=== PATIENT | male | born 1965 | race Two or more races ===

== ENCOUNTER 2019-05-24 18:11 | Emergency (ER) | payer OTHER ==
[~2019-05-24] VITALS: Ht 167.6 cm; Wt 99.8 kg
--- NOTE | 2019-05-24 19:00 | NUR ---
Dr. Buenrostro at bedside for MSE.
--- NOTE | 2019-05-24 19:06 | NUR ---
Patient discharged to home in stable conditon. Written and verbal after care instructions given. Patient verbalizes understanding of instructions. Pt ambulated out of ER with steady gait, no acute signs of distress, VSS, all belongings taken.
[2019-05-24 19:08] VITALS: BP 132/78
== END 2019-05-24 19:08 | disposition home or self-care (01) ==
LOC: ER 18:18
DX: J06.9 Acute upper respiratory infection, unspecified (principal); B95.8 Unspecified staphylococcus as the cause of diseases classified elsewhere
CPT/HCPCS: A4663

== ENCOUNTER 2020-10-20 17:25 | Emergency (ER) | payer OTHER ==
[~2020-10-20] VITALS: Ht 165.1 cm; Wt 99.8 kg
[2020-10-20] MEDS ORDERED: LIDOCAINE HCL 2% 20 ML VIAL IJ ONE (17:45)
[2020-10-20] MEDS ORDERED: SULFAMETH/TRIMETH 800/160 MG TABLET PO ONE (18:15)
[2020-10-20] MEDS ORDERED: SULFAMETH/TRIMETH 800/160 MG TABLET ONE (18:30)
--- NOTE | 2020-10-20 18:38 | NUR ---
Patient discharged to home in stable condition. Written and verbal after care instructions given. Patient verbalizes understanding of instructions. Stressed follow up or return to ER for worsening s/s.
[2020-10-20 18:39] VITALS: BP 149/90
== END 2020-10-20 18:41 | disposition home or self-care (01) ==
LOC: ER 17:27
DX: L02.414 Cutaneous abscess of left upper limb (principal); L03.114 Cellulitis of left upper limb; I10 Essential (primary) hypertension
CPT/HCPCS: A4663

== ENCOUNTER 2020-10-24 15:11 | Emergency (ER) | payer OTHER ==
[~2020-10-24] VITALS: Ht 165.1 cm; Wt 99.8 kg
== END 2020-10-24 15:30 | disposition home or self-care (01) ==
LOC: ER 15:11
DX: Z48.817 Encounter for surgical aftercare following surgery on the skin and subcutaneous tissue (principal); L02.414 Cutaneous abscess of left upper limb
CPT/HCPCS: A4663